=== PATIENT | female | born 1955 | race Caucasian/White ===

== ENCOUNTER → 2016-10-21 | Outpatient (CLI) | payer BC ==
[~2016-10-21] MED LIST: AMLO-114 PO; ASPI81TA28 PO; CARV6.252 PO; CHOL1CAP PO; COEN1CAP28 PO; ESTR0.3T PO; GADAVIST IV PRN; ISOS30TA3 PO; LEVO112T4 PO; LEVO88TA PO; LPT40 PO; LSNP/30 PO; MAGN400T6 PO; NTRGSL/4 UT; NXM/40 PO; POTA1TAB PO; PRAM1TAB52 PO; PROP10TA7 PO; TPRSR/25 PO
--- NOTE | 2016-10-21 16:17 | DIAGNOSTIC IMAGING REPORT ---
Brain MRI WITH AND WITHOUT CONTRAST HISTORY: Myalgias. TECHNIQUE: Multiplanar multisequence MRI of the brain was performed both before and after the intravenous administration of contrast. COMPARISON STUDY: None. FINDINGS: There is no mass, hematoma, midline shift, or acute infarct. Mild mucosal thickening within the left maxillary sinus. The mastoid or cells are clear. The ventricles and sulci are within normal limits for age. A few scattered foci of T2 hyperintensity seen within the periventricular and subcortical white matter are nonspecific but suggestive of mild microvascular ischemic changes. The major vascular flow voids at the skull base are well-maintained. No abnormal enhancement. Of note, there is motion artifact within the coronal T1 postcontrast sequences. IMPRESSION: No acute intracranial abnormality. A few scattered foci of T2 hyperintensity seen within the periventricular and subcortical white matter are nonspecific but favor microvascular ischemic change. Electronically signed by: Davy Red M.D. 10/21/2016 4:16 PM Dictated Date/Time: 10/21/2016 4:09 PM
== END | disposition home or self-care (01) ==
LOC: C.MRI 15:14
PROVIDERS: ATTEND Psychiatry & Neurology Neurology
DX: M79.1 Myalgia (principal)

== ENCOUNTER 2016-10-24 08:02 | Day surgery (SDC) | payer BC ==
[2016-10-24] VITALS (8 sets, daily range): BP systolic 103–136; BP diastolic 53–75; PULSE 50–58; TEMP 36.7–37.1; O2SAT 92–95; Ht 167.6 cm; Wt 68.0 kg
[~2016-10-24] VITALS: Ht 167.6 cm; Wt 68.0 kg
[~2016-10-24 08:02] MED LIST changes: -CARV6.252 PO; -GADAVIST IV PRN; -LEVO112T4 PO; -PROP10TA7 PO
[2016-10-24] MEDS ORDERED: PROP10TA7 PO (09:07)
[2016-10-24] MEDS ORDERED: CARV6.252 PO (09:07)
--- NOTE | 2016-10-24 10:27 | Discharge Instructions ---
Discharge Instructions Procedure Procedure Date: Oct 24, 2016. Reason for visit: Cervical Dystonia, Chronic Fatigue W/Opening Press. Discharge Discharge Date: Oct 24, 2016. Discharge Diagnosis: chronic fatigue, dystonia Instructions Activity Recommendations: 1 Day-May resume regular activity Return to School/Work: no limitations Recommended Home Diet: Resume Previous Diet Allergies Coded Allergies: Amoxicillin (Unverified Allergy, Mild, HIVES, 10/24/16) Chicken Allergy (Unverified Allergy, Mild, ANAPHYLAXIS, 10/24/16) Codeine (Unverified Allergy, Mild, GI SYMPTOMS, 10/24/16) Egg White (Unverified Allergy, Mild, ANAPHYLAXIS, 10/24/16) Penicillins (Unverified Allergy, Mild, HIVES, 02/08/16) Apple (Unverified Allergy, Unknown, ANAPHYLAXIS, 02/08/16) swollen glands [place] Recommendations: Call your doctor if: * Temperature above 101 degrees * Pain not relieved by pain medicine ordered * There is increased drainage or redness from any incision * You have any unanswered questions or concerns. Your Doctors Instructions noted above were prepared by provider Basil Carbajal. Patient Signature Section: Patient Instructions Signature Page [place] Patient (or Guardian) Signature/Date: I have read and understand the instructions given to me by my caregivers. Caregiver/RN/Doctor Signature/Date: The above-named patient and/or guardian has received patient instructions on this date. + Original Patient Signature Page (only) stays with chart. Please make copy for patient.
[2016-10-24] MEDS ORDERED: ACETAMINOPHEN 500 MG TAB PO PRN (10:30)
--- NOTE | 2016-10-24 10:34 | DIAGNOSTIC IMAGING REPORT ---
LUMBAR PUNCTURE DIAGNOSTIC CLINICAL HISTORY: Chronic inflammatory disease, dystonia. Fatigue. COMPARISON STUDY: No previous studies for comparison. FINDINGS: A timeout was performed. The risks of the procedure were explained to the patient and informed consent was obtained. The patient was prepped and draped in sterile fashion. The skin was anesthetized 1% lidocaine. Under fluoroscopic guidance a lumbar puncture was performed at the L4-5 level with a 22-gauge spinal needle. The opening pressure was 15 cm of H2O. 12 seconds of fluoroscopic time was utilized. A single fluoroscopic spot image was acquired. Under gravity drip, 8 cc of clear CSF was withdrawn and into 4 tubes. The fluid was sent for laboratory analysis as specified by the referring clinician. There were no complications. IMPRESSION: Successful fluoroscopically guided diagnostic lumbar puncture performed at the L4-5 level. 8 cc of clear CSF was withdrawn and sent for laboratory analysis. Electronically signed by: Basil Carbajal M.D. 10/24/2016 10:32 AM Dictated Date/Time: 10/24/2016 10:31 AM
[2016-10-24 10:38] LABS: CSF APPEARANCE CLEAR; CSF COLOR COLORLESS
[2016-10-24 10:39] LABS: CSF XANTHOCHROMIC NO XANTHOCHROMIA
[2016-10-24 10:52] LABS: CSF CHEMISTRY TUBE # 1
[2016-10-24 10:53] LABS: CSF TOTAL PROTEIN 59.8 mg/dl (15.0-45.0)
[2016-10-30 22:35] LABS: ALBUMIN 3.6 g/dL (3.2-4.6); IGG CSF 4.7 mg/dL (0.8-7.7); IGG SERUM 1380 mg/dL (694-1618); LYME DNA PCR CSF OR SYNOVIAL Not detected (Not Detected); LYME DNA SOURCE CSF; LYME IGG CSF NO BANDS DETECTED; LYME IGM CSF NO BANDS DETECTED; MYELIN BASIC PROTEIN 663 <2.0 mcg/L (0.0-4.0)
[2017-03-31] MEDS ORDERED: LEVO112T4 PO (07:44)
[2017-03-31] MEDS ORDERED: ISOS30TA3 PO (07:44)
== END 2016-10-24 14:11 | disposition home or self-care (01) ==
LOC: C.ACU 08:02
PROVIDERS: ATTEND Psychiatry & Neurology Neurology
DX: G61.81 Chronic inflammatory demyelinating polyneuritis (principal); D72.89 Other specified disorders of white blood cells; G24.9 Dystonia, unspecified; M79.1 Myalgia

== ENCOUNTER → 2016-11-25 | Outpatient (CLI) | payer BC ==
[~2016-11-25] MED LIST changes: -AMLO-114 PO; +CARV6.252 PO; +LEVO112T4 PO; -PRAM1TAB52 PO; +PROP10TA7 PO; -TPRSR/25 PO
[2016-11-25 13:09] LABS: BASO % 0.9 %; BASO ABS # 0.06 K/uL (0-0.2); COMPLETE YES; EOS % 4.7 %; HEMATOCRIT 40.9 % (37-47); IG% 0.3 %; LYMPH ABS # 2.29 K/uL (1.2-3.4); MEAN CELL VOLUME 89.9 fL (80-100); MEAN CORPUSCULAR HEMOGLOBIN 29.7 pg (25-34); MEAN PLATELET VOLUME 9.6 fL (7.4-10.4); NEUT % 47.1 %; PLATELET COUNT 346 K/uL (130-400); RED BLOOD COUNT 4.55 M/uL (4.2-5.4); WHITE BLOOD COUNT 6.36 K/uL (4.8-10.8)
[2016-11-25 13:34] LABS: ALT/SGPT 12 U/L (12-78); AST/SGOT 15 U/L (15-37); BLOOD UREA NITROGEN 10 mg/dl (7-18); BUN/CREATININE RATIO 10.7 (10-20); CALCIUM 8.7 mg/dl (8.5-10.1); CARBON DIOXIDE 25 mmol/L (21-32); CHLORIDE 107 mmol/L (98-107); CREATININE 0.93 mg/dl (0.60-1.20); GLUCOSE 92 mg/dl (70-99); POTASSIUM 3.8 mmol/L (3.5-5.1); SODIUM 142 mmol/L (136-145)
[2016-11-25 13:46] LABS: ALB/GLOB RATIO 0.9 (0.9-2); ALKALINE PHOSPHATASE 76 U/L (45-117); IMMUNOGLOBULN M 66.1 mg/dL (40-230)
[2016-11-27 06:23] LABS: ALBUMIN 3.9 G/DL (3.8-4.8); GAMMA GLOBULIN 1.2 G/DL (0.8-1.7); IMMUNOFIXATION IGA SERUM 92 MG/DL (81-463); IMMUNOFIXATION IGG SERUM 1448 MG/DL (694-1618); IMMUNOFIXATION IGM SERUM 66 MG/DL (48-271); MONOCLONAL PROTEIN BAND 1 0.9 G/DL (NOT DETECTED)
== END | disposition home or self-care (01) ==
LOC: C.LABBC 10:56
PROVIDERS: ATTEND Psychiatry & Neurology Neurology
DX: I25.10 Atherosclerotic heart disease of native coronary artery without angina pectoris (principal); M79.1 Myalgia

== ENCOUNTER → 2016-11-29 | Outpatient (CLI) | payer BC ==
--- NOTE | 2016-11-29 15:31 | DIAGNOSTIC IMAGING REPORT ---
PELVIS/BILATERAL HIP 2 VIEWS CLINICAL HISTORY: PELVIS BILAT HIPS COMPARISON STUDY: None FINDINGS: Mild degenerative change of the hips bilaterally. No evidence for acetabular protrusion. Mild degenerative change sacroiliac joints. Several pelvic vascular calcifications. Minimal peripheral osteophytic reaction of the acetabular as well as femoral head regions. 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 Mild degenerative change sacroiliac joints. No acute process. Electronically signed by: Edward Munoz M.D. 11/29/2016 3:29 PM Dictated Date/Time: 11/29/2016 3:28 PM
[2016-11-29 15:54] LABS: RHEUMATOID FACTOR < 10.0 U/mL (0-15); TOTAL IRON BINDING CAPACITY 433 mcg/dl (250-450)
[2016-11-29 15:55] LABS: URINE APPEARANCE CLEAR (CLEAR); URINE BILIRUBIN NEG (NEG); URINE COLOR YELLOW; URINE EPITHELIAL CELL AUTO 20-30 /lpf (0-5); URINE NITRITE NEG (NEG); URINE SPECIFIC GRAVITY 1.008 (1.000-1.030); UROBILINOGEN NEG (NEG)
[2016-11-29 16:05] LABS: MANUAL MICROSCOPIC REQUIRED? NO; REVIEW REQ? NO
[2016-12-04 22:39] LABS: CYCLIC CITRULLINATED PEPT IGG <16 UNITS (<20); HLA-B27** TC 528X NEGATIVE (NEGATIVE); MYELOPEROXIDASE AB <1.0 AI (<1.0); PARVOVIRUS IgG INDEX 0.3 (<0.9); PARVOVIRUS IgM INDEX 0.1 (<0.9)
== END | disposition home or self-care (01) ==
LOC: C.RAD1850 14:43
PROVIDERS: ATTEND Internal Medicine Rheumatology
DX: E55.9 Vitamin D deficiency, unspecified (principal); M25.551 Pain in right hip; M25.552 Pain in left hip; M79.1 Myalgia

== ENCOUNTER → 2016-12-05 | Outpatient (CLI) | payer BC ==
--- NOTE | 2016-12-05 15:50 | DIAGNOSTIC IMAGING REPORT ---
WHOLE-BODY NUCLEAR BONE SCAN CLINICAL HISTORY: Myalgia. Multifocal arthralgias. COMPARISON STUDY: Radiographs of the hips and pelvis dated 11/29/2016. TECHNIQUE: Three hours following the IV administration of 27 mCi of technetium 99m MDP, whole body nuclear bone scan was performed in the anterior and posterior projections. FINDINGS: There is no abnormal osseous tracer deposition identified typical in appearance for bony metastatic disease. Typically degenerative uptake is identified the hips. Mild degenerative activity is also noted in the ankles. There is expected excreted activity within the renal collecting system and bladder. IMPRESSION: Typically degenerative activity is present in the hips and ankles. See above. Electronically signed by: Dave Landaverde M.D. 12/05/2016 3:49 PM Dictated Date/Time: 12/05/2016 3:47 PM
== END | disposition home or self-care (01) ==
LOC: C.NUCL 11:23
PROVIDERS: ATTEND Internal Medicine Rheumatology
DX: E55.9 Vitamin D deficiency, unspecified (principal); M25.551 Pain in right hip; M25.552 Pain in left hip; M79.1 Myalgia; M16.0 Bilateral primary osteoarthritis of hip; M19.071 Primary osteoarthritis, right ankle and foot; M19.072 Primary osteoarthritis, left ankle and foot